=== PATIENT | female | born 1995 | race Caucasian/White ===

== ENCOUNTER → 2016-12-28 | Outpatient (CLI) | payer BC ==
--- NOTE | ~2016-12-28 | US24 ---
[facility] A Service of [facility] RADIOLOGY TEXT RESULTS PATIENT: STACEY LUX LOCATION: [facility] : 95 UNIT #: [id number] AGE: [address]: Ashley Fish APRN SEX: F ORDER DR: [id number] [facility] [address] [place], [place] [address] [id number] O MR#: [id number] Acc #: [id number] NAME: STACEY LUX : 1995 SEX: F STUDY DATE/TIME: 12/28/2016 8:08 UNIT: [facility] ROOM: STUDY DESCRIPTION: US Breast Unilateral Attending Physician: Ashley Fish A.P.R.N. Referring Physician: Ashley Fish A.P.R.N. Ordering Physician: Ashley Fish A.P.R.N. Primary Care Physician: Ashley Fish A.P.R.N. MEDICAL IMAGING REPORT This report is preliminary unless electronic signature is present EXAM Targeted left breast ultrasound 12/28/2016 INDICATIONS 21-year-old female with a breast lump. The patient reports symptoms over the past week. The patient reports that the area of concern, feels like a "baby carrot" TECHNIQUE Sonographic imaging of the area of concern in the left breast was performed. No comparisons. FINDINGS Left breast: The patient was initially scanned independently by the technologist and then rescanned in my presence. Limited physical exam (with patient consent) was performed by myself and was negative. Imaging of the area of concern in the left breast spans the 4-5 o'clock positions and demonstrates no suspicious cystic or solid mass or persistent shadowing abnormality with expected heterogeneously dense breast tissue in a young female present. Clinical considerations should determine additional imaging at this time. The patient was counseled that if her symptoms worsened or a new abnormality developed on either side then at that point, she should return for additional imaging and workup which would include a diagnostic mammogram for further assessment and characterization. She voiced understanding agreement. Based on physical exam and imaging findings with ultrasound today, diagnostic mammography was not thought to offer additional diagnostic benefit and therefore was not performed. IMPRESSION [facility]. [facility] A Service of [facility] / [facility] RADIOLOGY TEXT RESULTS PATIENT: STACEY LUX LOCATION: [facility] : 95 UNIT #: [id number] AGE: [address]: Ashley Fish APRN SEX: F ORDER DR: 1. Ultrasound evaluation of the area of patient concern in the left breast demonstrates normal appearing dense breast tissue in a young female patient. No suspicious finding. Findings are concordant with physical exam. Clinical considerations to determine additional imaging at this time. See discussion above. Findings and recommendations discussed with the patient. BIRADS: Negative BIRADS: 1 Dictated by... Demian Stallworth M.D. THIS IS AN ELECTRONICALLY VERIFIED REPORT Demian Stallworth M.D. at 12/28/2016 5:23 PM Jonas TD: 12/28/2016 09:31 JOB #: [id number] MEDICAL IMAGING REPORT Page 1 of 1 COPY
== END | disposition home or self-care (01) ==
LOC: CMAM 07:30
DX: N63 Unspecified lump in breast (principal)
CPT/HCPCS: 76641